=== PATIENT | female | born 1985 | race Two or more races ===

== ENCOUNTER → 2016-10-27 | Outpatient (REF) | payer BC | LOC: M LAB REF 09:13 | PROVIDERS: ATTEND Physician Assistant Medical | DX: R30.0 Dysuria (principal) ==

== ENCOUNTER → 2016-12-17 | Outpatient (REF) | payer BC, MEDICAID | LOC: M SMT 16:56 | PROVIDERS: ATTEND Nurse Practitioner Women's Health | DX: N39.0 Urinary tract infection, site not specified (principal) ==

== ENCOUNTER → 2016-12-21 | Outpatient (CLI) | payer BC ==
--- NOTE | 2016-12-21 13:54 | REP ---
RENAL AND BLADDER ULTRASOUND: Real-time sonographic evaluation of the kidneys performed and demonstrates both kidneys to be normal in size and echotexture, right kidney measuring 9.5 x 5.7 x 3.9 cm and left kidney 9.8 x 4.9 x 5.1 cm. There is no renal mass, hydronephrosis or nephrolithiasis identified. Urinary bladder is mild to moderately distended measuring 9.1 x 8.1 x 7.2 cm for a total volume of 278 mL. No bladder mass or calculus is seen. There is minimal post void residual of 9 mL after voiding. There are bilateral ureteral jets in the urinary bladder with Doppler color evaluation. IMPRESSION: Essentially negative renal and bladder ultrasound. Signed by Christoph Mccall MD 12/21/2016 04:08 P
== END ==
LOC: M SMT 10:42
PROVIDERS: ATTEND Nurse Practitioner Women's Health
DX: R31.0 Gross hematuria (principal); N39.0 Urinary tract infection, site not specified

== ENCOUNTER → 2019-04-06 | Outpatient (CLI) | payer BC ==
--- NOTE | 2019-04-06 19:39 | REP ---
CHEST: Two views. There is no evidence of acute infiltrate. No pleural effusion is seen. The heart is normal in size. The mediastinal silhouette is unremarkable. The visualized osseous structures are intact. IMPRESSION: No acute pulmonary disease. Electronically Signed by Christoph Mccall MD 04/06/2019 07:42 P
== END ==
LOC: M WUC 19:10
PROVIDERS: ATTEND Physician Assistant
DX: R07.9 Chest pain, unspecified (principal)

== ENCOUNTER → 2020-04-03 | Outpatient (CLI) | payer BC ==
--- NOTE | 2020-04-03 15:49 | REP ---
INDICATION: ANATOMY COMPARISON: None. TECHNIQUE: Transabdominal obstetrical ultrasound with color Doppler evaluation. FINDINGS: Examination demonstrates a single live intrauterine in transverse presentation. motion is identified by technologist. Placenta is noted posterior and grade 0 without evidence for placenta previa or abruption. Amniotic fluid volume is normal. Cervix measures 4.1 cm in length and appears closed. The placental insertion of the cord is not identified due to positioning. Gestational age by LMP 20 weeks 2 days with ANTHONY 08/19/2020. Gestational age by current measurements 20 weeks 0 days with ANTHONY 08/21/2020. FHR equals 136 beats per minute. BPD: 4.6 cm 19 weeks 6 days HC: 17.7 cm twenty weeks 1 day AC: 14.9 cm 20 weeks 1 day FL: 3.2 cm 19 weeks 6 days HL: 3.1 cm 20 weeks 2 days HC/AC: 1.19 Estimated weight 328 grams (32ndpercentile). Anatomical assessment demonstrates normal structures including cranium, choroid plexus, cavum, cerebellum/posterior fossa, diaphragm, stomach, cord insertion/three-vessel cord, kidneys/bladder, spine, and extremities. IMPRESSION: Single live intrauterine in transverse lie demonstrating appropriate estimated weight and growth. Limited evaluation of the facial features and heart/ventricular outflow tracts warrants re-evaluation and follow-up. <Electronically signed by Richardson Allen > 04/03/20 [id number]
== END ==
LOC: M WHC 13:00
PROVIDERS: ATTEND Obstetrics & Gynecology Obstetrics
DX: Z34.92 Encounter for supervision of normal pregnancy, unspecified, second trimester (principal)

== ENCOUNTER → 2020-05-06 | Outpatient (CLI) | payer BC ==
--- NOTE | 2020-05-06 07:59 | REP ---
INDICATION: F/U ANATOMY COMPARISON: 04/03/2020 TECHNIQUE: Transabdominal obstetrical ultrasound with color Doppler evaluation. FINDINGS: Examination demonstrates a single live intrauterine in transverse presentation. motion is identified by technologist. Placenta is noted posterior and grade 0 without evidence for placenta previa or abruption. Amniotic fluid volume is normal. Cervix measures 3.1 cm in length and appears closed.. Gestational age by LMP 25 weeks 0 days with ANTHONY 08/19/2020. Gestational age by current measurements 25 weeks 1 day with ANTHONY 08/18/2020. FHR equals 158 beats per minute. Estimated weight 807 grams (59thpercentile). Anatomical assessment demonstrates normal nose/lips, four-chamber heart and ventricular outflow tract. IMPRESSION: Single live intrauterine in transverse lie demonstrating appropriate interval growth. In conjunction with prior examination anatomical assessment is complete and normal. <Electronically signed by Richardson Allen > 05/06/20 [id number]
== END ==
LOC: M WHC 06:46
PROVIDERS: ATTEND Obstetrics & Gynecology Obstetrics
DX: Z34.92 Encounter for supervision of normal pregnancy, unspecified, second trimester (principal); Z3A.25 25 weeks gestation of pregnancy

== ENCOUNTER → 2020-05-27 | Outpatient (CLI) | payer BC ==
[2020-05-27 12:53] LABS: BASO % 0.3 % (0.0-1.0); EOS # 0.1 10^3/uL (0.0-0.5); EOS % 0.6 % (0.0-3.0); HEMATOCRIT 36.3 % (36.0-47.0); HEMOGLOBIN 12.1 g/dl (12.0-15.5); LYMPH # 1.3 10^3/uL (1.5-5.0); LYMPH % 13.2 % (24.0-44.0); MEAN CORPUSCULAR HEMOGLOBIN 30.8 pg (27.0-33.0); MEAN CORPUSCULAR HGB CONC 33.3 g/dl (32.0-36.5); MEAN CORPUSCULAR VOLUME 92.4 fl (80.0-96.0); MONO # 0.7 10^3/uL (0.0-0.8); MONO % 6.8 % (0.0-5.0); NEUTROPHILS # 7.8 10^3/uL (1.5-8.5); NEUTROPHILS % 78.2 % (36.0-66.0); PLATELET COUNT, AUTOMATED 176 10^3/uL (150-450); RED BLOOD COUNT 3.93 10^6/uL (4.00-5.40)
== END ==
LOC: M WUC 10:23
PROVIDERS: ATTEND Obstetrics & Gynecology Obstetrics
DX: Z34.92 Encounter for supervision of normal pregnancy, unspecified, second trimester (principal); Z3A.00 Weeks of gestation of pregnancy not specified

== ENCOUNTER → 2020-06-07 | Outpatient (REF) | payer BC | LOC: M PLALAB 14:48 | PROVIDERS: ATTEND Advanced Practice Midwife | DX: O09.293 Supervision of pregnancy with other poor reproductive or obstetric history, third trimester (principal) | CPT/HCPCS: 36415; 86850; 86900; 86901; J2790 ==

== ENCOUNTER → 2020-07-08 | Outpatient (REF) | payer BC | LOC: M PLALAB 15:30 | PROVIDERS: ATTEND Obstetrics & Gynecology | DX: Z36.89 Encounter for other specified antenatal screening (principal); Z3A.34 34 weeks gestation of pregnancy ==

== ENCOUNTER → 2020-07-11 | Outpatient (CLI) | payer BC ==
--- NOTE | 2020-07-11 10:43 | REP ---
INDICATION: UTERINE SIZE DATE DISCREPANCY,GROWTH. COMPARISON: 05/06/2020. TECHNIQUE: Real-time sonographic evaluation of the gravid uterus performed. FINDINGS: Estimated gestational age is34 weeks 3 days, EDC 08/19/2020. Today's measurements indicate appropriate growth. Presentation: Cephalic Placenta posterior, grade 2, without evidence of placenta previa. heart rate is recorded at 144 beats per minute. Amniotic fluid is subjectively normal. BARBARA 10.2, normal range 8.0-24.8. Closed cervical length is measured at 3.0 cm. Biometry chart: BPD: 84 mm, 33 weeks 6 days, 43rd percentile. HC: 301 mm, 33 weeks 3 days, 35th percentile AC: 305 mm, 34 weeks 3 days, 50th percentile Femur length: 66 mm, 33 weeks 6 days, 41st percentile HC to AC ratio: 0.99, normal range 0.94-1.13. Estimated weight: 2346g, 36th percentile. IMPRESSION: Viable single intrauterine gestation as above. <Electronically signed by Christoph Mccall > 07/11/20 [id number]
== END ==
LOC: M WHC 06:21
PROVIDERS: ATTEND Obstetrics & Gynecology
DX: O26.843 Uterine size-date discrepancy, third trimester (principal); Z3A.33 33 weeks gestation of pregnancy

== ENCOUNTER → 2020-07-23 | Outpatient (REF) | payer BC | LOC: M SFHCWAGY 13:53 | PROVIDERS: ATTEND Obstetrics & Gynecology | DX: Z36.85 Encounter for antenatal screening for Streptococcus B (principal) ==

== ENCOUNTER → 2020-08-21 | Outpatient (CLI) | payer BC, OTHER ==
[~2020-08-21] MED LIST: OMEP-218 PO; PRENTAB9 PO
== END ==
LOC: M LABSMTC 14:30
PROVIDERS: ATTEND Specialist
DX: Z20.822 Contact with and (suspected) exposure to COVID-19 (principal)

== ENCOUNTER 2020-08-22 06:45 | Inpatient (IN) | payer BC, OTHER ==
[2020-08-22] VITALS (9 sets, daily range): BP systolic 111–165; BP diastolic 56–89
[~2020-08-22] VITALS: Ht 154.9 cm; Wt 96.7 kg
[2020-08-22] MEDS ORDERED: PRENTAB9 PO (07:12)
[2020-08-22] MEDS ORDERED: OMEP-218 PO (07:13)
[2020-08-22] MEDS ORDERED: LR 1,000 ML IV SCH ×2 (08:05)
[2020-08-22] MEDS ORDERED: OXYTOCIN DRIP 30 UNITS in IV 1 EA IV SCH ×5 (08:05→11:10)
[2020-08-22 08:21] LABS: HEMATOCRIT 41.1 % (36.0-47.0); HEMOGLOBIN 13.6 g/dl (12.0-15.5); MEAN CORPUSCULAR HEMOGLOBIN 30.2 pg (27.0-33.0); MEAN CORPUSCULAR HGB CONC 33.1 g/dl (32.0-36.5); MEAN CORPUSCULAR VOLUME 91.3 fl (80.0-96.0); PLATELET COUNT, AUTOMATED 165 10^3/uL (150-450); WHITE BLOOD COUNT 12.5 10^3/uL (4.0-10.0)
[2020-08-22] MEDS ORDERED: miSOPROStol 50MCG 1/2 TABLET PO SCH (08:30)
[2020-08-22] MEDS ORDERED: PROMETHAZINE INJ 25 MG/ML VIAL (J2550) IV PRN (09:10)
[2020-08-22] MEDS ORDERED: BUTORPHANOL 2 MG/ML INJ (J0595) IV ONE (09:15)
[2020-08-22] MEDS ORDERED: FENTANYL 2MCG/ML ROPIVACAINE 0.2% IN 0.9% NACL 100ML IVBAG As Ordered ONE (09:38)
--- NOTE | 2020-08-22 09:49 | HPEPDOC ---
Obstetrical History & Physical General Date of Admission Aug 22, 2020 at 06:45 History of Present Illness 35yo at 40w3d presents for IOL, but SROM shortly after arrival Chief Complaint: Rupture of membranes Information Provided By: Patient Age: 35 : 3 Livin Care Care: Good Care Dating Final EDC: Aug 19, 2020 Final EDC by: 2nd trimester (US) EGA at Admission: 40 Past Medical History Past Obstetrical History #1: Past Obstetrical History: Multigravida Date of Delivery: Dec 22, 2004 Type of Delivery: Spontaneous Vaginal Del. Sex of Infant: Male Complications: No Past Obstetrical History #2: Date of Delivery: Jan 25, 2011 Type of Delivery: Spontaneous Vaginal Del. 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 Past Medical History Surgical History: Gallbladder Family History Significant Family History: Cancer, COPD, Diabetes, Heart disease, Hypertension Social History Marital Status: Psychosocial History: No pertinent psych hx * Smoker: non-smoker Drugs: denies Allergies Coded Allergies: clindamycin (Verified Allergy, Intermediate, Hives, 08/22/20) ondansetron (Verified Allergy, Intermediate, Hives, 08/22/20) Medications Scheduled Omeprazole (Omeprazole) 20 Mg Capsule.dr, 20 MG PO DAILY No.137/Iron/Folic Acd ( Vitamin Tablet) 1 Each Tablet, 1 TAB PO DAILY Physical Examination Physical Examination GENERAL: Alert and oriented times three. BREAST: . ABDOMEN: Gravid and non-tender to touch. FETUS: Is vertex (VTX) by sterile vaginal examination (SVE), fetus is vertex (VTX) by Edgar. HEART RATE: Regular rate and rhythm. LUNGS: Clear to auscultation (CTA). Laboratory Data 24H LABS Laboratory Tests 2 08/22/20 08:06: Nucleated Red Blood Cells % (auto) 0.0 CBC/BMP Laboratory Tests 08/22/20 08:06 Pertinent Laboratoy Data Blood Type: AB- RBC Antibody Screen: Negative Rapid Plasma Reagin: Nonreactive Group B Streptococcus: Negative Cystic Fibrosis: Positive Anatomy Ultrasound Placenta Location: Posterior Normal Anatomy: Yes Placenta Previa: No Steroid Therapy Steroid Therapy: No Vaginal Examination Dilation: 3 cm (SROM, meconium ) Effacement: 80% Station: -2 Cervical Consistency: Soft Cervical Position: Anterior Presentation: Cephalic presentation Assessment Variability: Moderate Tocometer Contractions: Yes Frequency: regular Assessment/Plan Assessment 35yo at 40w3d with SROM, meconium stained Reassuring status Plan Admit and orient. Building Code Inspector and consent. Group B Streptococcus (GBS) negative. Labs and intravenous (IV) per unit protocol. Counseled on Pitocin and induction of labor (IOL). Anticipate normal spontaneous delivery (). C-S as appropriate. LATISHA JHA MD. Aug 22, 2020 09:48
--- NOTE | 2020-08-22 10:23 | DNPDOC ---
[facility] Delivery Note Delivery Note DATE OF DELIVERY: 08/22/2020 TIME OF : 1001 GENDER: Female APGARS: 8 and 9. WEIGHT: 3370 grams or 7 pounds 7ounces. LACERATIONS: none ANESTHESIA: none ESTIMATED BLOOD LOSS: 200ml COUNTS: 5 laparotomy sponges accounted for prior to after delivery. 3 sharps removed from delivery field. DELIVERY NOTE: On 1 08/22/2020 at 1001 Mrs. Gustafson at 35-year-old 3 now para 2 and spontaneous vaginal delivery of a liveborn female infant Apgars 8 and 9 weight was 3370 g or 7 lbs. 7 oz. Head was delivered occiput anterior (OA), followed by delivery of the shoulders and corpus. was handed to mom with a good cry. Cord was clamped times two and was cut by support person under my direction. Placenta was then drained and delivered grossly intact. A premixed bag of 500 mL of normal saline with 30 units of Pitocin was then bolused along with uterine massage until the uterus was firm. On inspection, cervix, vagina, perineum was grossly intact and hemostatic. Mom and baby in recovery on stable condition. LATISHA JHA MD. Aug 22, 2020 10:23
[2020-08-22] MEDS ORDERED: IBUPROFEN 600MG TAB PO PRN (11:10)
[2020-08-22] MEDS ORDERED: METHYLERGONOVINE MALEATE 0.2 MG TAB PO PRN (11:10)
[2020-08-22] MEDS ORDERED: MOM 30ML SUSPENSION UDC PO PRN (11:10)
[2020-08-22] MEDS ORDERED: ANUSOL HC CREAM 30GM TOP PRN (11:10)
[2020-08-22] MEDS ORDERED: ACETAMINOPHEN TAB 650MG DOSE (2X325MG) PO PRN (11:10)
[2020-08-22] MEDS ORDERED: DIBUCAINE 1% OINTMENT 30GM TOP PRN (11:10)
[2020-08-22] MEDS ORDERED: MEASLES,MUMPS,RUBELLA VACCINE INJ (MMR-II) (90707) SC SCH (11:10)
[2020-08-22] MEDS ORDERED: RHOGAM 300 MCG (1500 IU) INJ (J2790) IM SCH (11:10)
[2020-08-22] MEDS: PRENATAL VITAMINS CHEWABLE TABLET PO SCH (12:42)
[2020-08-22] MEDS: IBUPROFEN 800 MG TAB PO PRN ×2 (13:15→21:14)
[2020-08-22] MEDS: ACETAMINOPHEN 500 MG TAB PO PRN (18:50)
[2020-08-22] MEDS: DOCUSATE SODIUM 100MG CAPSULE PO PRN (21:15)
[2020-08-23] MEDS: ACETAMINOPHEN 500 MG TAB PO PRN ×3 (00:53→23:25)
[2020-08-23] MEDS: IBUPROFEN 800 MG TAB PO PRN ×2 (05:00→15:31)
--- NOTE | 2020-08-23 05:31 | IPNPDOC ---
Progress Note Date of Service: Aug 23, 2020 Day#: 1 Progress Note SUBJECT: Doing well without complaints. Ambulating, voiding and pain is well- controlled. Reports minimal lochia. OBJECTIVE: VITAL SIGNS: Within normal limits, afebrile. Alert and oriented times three. Abdomen: Fundus firm at U-2. Soft, NTTP. Ext: neg calf tenderness. ASSESSMENT: day #1 status post . Recovering in stable condition. PLAN: 1. Continue routine care 2. Discharge plans for tomorrow VS, I&O, 24H, Fishbone Vital Signs/I&O Vital Signs Date Time Temp Pulse Resp B/P (MAP) Pulse Ox O2 Delivery O2 Flow Rate FiO2 08/22/20 18:00 97.8 87 16 111/66 (81) 98 Room Air I&O- Last 24 Hours up to 6 AM 08/23/20 06:00 Intake Total 1500 ml Output Total 650 ml Balance 850 ml Laboratory Data 24H LABS Laboratory Tests 2 08/22/20 08:06: Nucleated Red Blood Cells % (auto) 0.0, Syphilis Serology NONREACTIVE, Hepatitis B Surface Antigen NEGATIVEL 08/22/20 13:28: Serology Scanned Report Hepatitis B Testing CBC/BMP Laboratory Tests 08/22/20 08:06 LATISHA JHA MD. Aug 23, 2020 05:31
[2020-08-23 06:00] VITALS: BP 93/54
[2020-08-23] MEDS: PRENATAL VITAMINS CHEWABLE TABLET PO SCH (09:05)
[2020-08-23 11:45] VITALS: BP 121/68
[2020-08-23 18:00] VITALS: BP 113/68
[2020-08-23] MEDS: DOCUSATE SODIUM 100MG CAPSULE PO PRN (23:25)
[2020-08-24] MEDS: IBUPROFEN 800 MG TAB PO PRN ×2 (03:00→12:28)
[2020-08-24 06:00] VITALS: BP 111/62
[2020-08-24] MEDS ORDERED: PRENTAB9 PO (07:16)
[2020-08-24] MEDS: PRENATAL VITAMINS CHEWABLE TABLET PO SCH (09:51)
== END 2020-08-24 15:00 | disposition home or self-care (01) | DRG 560 ==
LOC: M LDI 06:45 → M OBS 12:30
PROVIDERS: ADMIT Advanced Practice Midwife; ATTEND Advanced Practice Midwife
PROC: 10E0XZZ Delivery of Products of Conception, External Approach (ICD-10-PCS; principal; 2020-08-22)
DX: O48.0 Post-term pregnancy (principal); Z3A.40 40 weeks gestation of pregnancy; Z37.0 Single live birth; O77.0 Labor and delivery complicated by meconium in amniotic fluid; Z88.1 Allergy status to other antibiotic agents; Z88.8 Allergy status to other drugs, medicaments and biological substances

== ENCOUNTER → 2021-09-22 | Outpatient (REF) | payer OTHER ==
[~2021-09-22] MED LIST changes: +OMEP-173 PO; -OMEP-218 PO
== END ==
LOC: M PLALAB 13:20
PROVIDERS: ATTEND Obstetrics & Gynecology
DX: Z12.4 Encounter for screening for malignant neoplasm of cervix (principal); R87.610 Atypical squamous cells of undetermined significance on cytologic smear of cervix (ASC-US)
CPT/HCPCS: 87624; G0123; G0463

== ENCOUNTER → 2021-09-22 | Outpatient (CLI) | payer OTHER | LOC: M PLALAB 10:48 | PROVIDERS: ATTEND Obstetrics & Gynecology | DX: Z80.3 Family history of malignant neoplasm of breast (principal) ==

== ENCOUNTER → 2022-01-21 | Outpatient (CLI) | payer OTHER | LOC: M WHC 07:29 | PROVIDERS: ATTEND Obstetrics & Gynecology | DX: N85.2 Hypertrophy of uterus (principal); N93.9 Abnormal uterine and vaginal bleeding, unspecified ==

== ENCOUNTER → 2024-03-22 | Outpatient (REF) | payer OTHER | LOC: M SFHCWAGY 13:36 | PROVIDERS: ATTEND Obstetrics & Gynecology | DX: Z01.419 Encounter for gynecological examination (general) (routine) without abnormal findings (principal) | CPT/HCPCS: 87624; G0123 ==

== ENCOUNTER 2024-11-02 08:38 | Emergency (ER) | payer OTHER ==
[~2024-11-02] VITALS: Ht 154.9 cm; Wt 85.5 kg
[2024-11-02 10:06] LABS: BASO # 0.0 10^3/uL (0.0-0.2); BASO % 0.3 % (0.0-1.0); EOS # 0.1 10^3/uL (0.0-0.5); EOS % 0.7 % (0.0-3.0); LYMPH # 1.6 10^3/uL (1.5-5.0); LYMPH % 23.8 % (24.0-44.0); MONO # 0.5 10^3/uL (0.0-0.8); MONO % 7.7 % (2.0-8.0); NEUTROPHILS # 4.6 10^3/uL (1.5-8.5); NEUTROPHILS % 67.4 % (36.0-66.0); PLATELET COUNT, AUTOMATED 196 10^3/uL (150-450)
[2024-11-02 10:15] LABS: KETONE, URINE AUTO RFX NEGATIVE (NEGATIVE); MUCUS, URINE RFX SMALL (NEGATIVE); NITRITE, URINE AUTO RFX NEGATIVE (NEGATIVE); RBC, URINE AUTO RFX 0 /HPF (0-3); SQUAM EPITHELIAL CELL UR AURFX 22 /HPF (0-6); WBC, URINE AUTO RFX 1 /HPF (0-3)
[2024-11-02 10:16] LABS: LEUKOCYTE ESTERASE UR AUTO RFX 1+ (NEGATIVE)
[2024-11-02 10:37] LABS: HCG, SERUM QUALITATIVE NEGATIVE (NEGATIVE)
[2024-11-02 10:38] LABS: ALT/SGPT 15 U/L (7.0-40); AST/SGOT 18 U/L (<34); CALCIUM LEVEL 9.1 MG/DL (8.5-10.1); CARBON DIOXIDE LEVEL 26 MMOL/L (20-31); CHLORIDE LEVEL 106 MMOL/L (98-107); CREATININE FOR GFR 0.61 MG/DL (0.55-1.30); GLOMERULAR FILTRATION RATE > 90.0 (>60); POTASSIUM SERUM 4.3 MMOL/L (3.5-5.1); SODIUM LEVEL 141 MMOL/L (136-145)
[2024-11-02] MEDS ORDERED: ISOVUE-370 76% 100 ML VIAL As Ordered ONE (10:48)
[2024-11-02] MEDS ORDERED: HOME MED LIST COMPLETE! XX SCH (11:15)
[2024-11-02 11:56] LABS: Trichomonas vaginalis (AMP) NOT DETECTED (NEGATIVE)
[2024-11-02] MEDS ORDERED: DICY1CAP8 PO (12:05)
[2024-11-02] MEDS ORDERED: REGL10TA6 PO (12:05)
[2024-11-02 12:18] VITALS: BP 114/65; TEMP 98.3; O2SAT 100
[2024-11-02 12:19] LABS: GC DNA AMPLIFICATION NEGATIVE (NEGATIVE)
== END 2024-11-02 12:26 | disposition home or self-care (01) ==
LOC: M ED 08:38
DX: R10.9 Unspecified abdominal pain (principal); K21.9 Gastro-esophageal reflux disease without esophagitis; Z88.1 Allergy status to other antibiotic agents; Z88.8 Allergy status to other drugs, medicaments and biological substances; Z79.899 Other long term (current) drug therapy
CPT/HCPCS: 74177; 80048; 80076; 81001; 83690; 84703; 85025; 87086; 87661; 87810; 87850; 96374; 99284; J2765; Q9967

== ENCOUNTER 2025-01-08 10:40 | Day surgery (SDC) | payer OTHER ==
[~2025-01-08] VITALS: Ht 154.9 cm; Wt 88.6 kg
[~2025-01-08 10:40] MED LIST changes: +DICY1CAP8 PO; +REGL10TA6 PO
[2025-01-08 12:19] VITALS: TEMP 97.8
[2025-01-08] MEDS ORDERED: LIDOCAINE 2% 100 MG/5 ML SDV (FOR ANES.) As Ordered ONE (12:19)
[2025-01-08 12:40] VITALS: BP 145/65; O2SAT 100
== END 2025-01-08 12:59 | disposition home or self-care (01) ==
LOC: M OPP 10:40
PROVIDERS: ATTEND Internal Medicine Gastroenterology
DX: K44.9 Diaphragmatic hernia without obstruction or gangrene (principal); R12 Heartburn; Z88.1 Allergy status to other antibiotic agents; Z88.8 Allergy status to other drugs, medicaments and biological substances; Z79.899 Other long term (current) drug therapy

== ENCOUNTER → 2025-04-12 | Outpatient (CLI) | payer OTHER | LOC: M WHC 14:06 | PROVIDERS: ATTEND Obstetrics & Gynecology | DX: R10.20 Pelvic and perineal pain unspecified side (principal) ==